=== PATIENT | female | born 1950 | race Caucasian/White ===

== ENCOUNTER 2017-03-23 15:55 | Inpatient (IN) | payer MEDICARE, BC ==
[~2017-03-23 15:55] MED LIST: ALBUTEROL17 GM; AMARYL2 MG PO; AMARYL4 M1 PO; AMBIEN10 MG PO; BIAXIN XL500 MG; CYMBALTA60 M1 PO; CYMBALTA60 MG PO; DOXYCYCLINE HY100 MG PO; FORTAMET500 MG/BOT; GLUCOPHAGE500 MG; GLUCOPHAGE850 M1 PO; GLUCOPHAGE850 MG PO; KEFLEX500 MG PO; LIPITOR40 M1 PO; LISINOPRIL-HCT1 EAC1 PO; LISINOPRIL-HCTZ PO; LUNESTA1 M1 PO; LUNESTA3 M1 PO; NEURONTIN800 M1 PO; NEURONTIN800 MG; NEURONTIN800 MG PO; PERCOCET 5-3251 EACH PO; PRAVACHOL40 MG PO; PROAIR HFA8.5 GM INH; PROMETHAZINE; PROMETHEGA12.5 MG/SU; TRILEPTAL300 MG PO; TRILEPTAL600 M2 PO; VIT B 12; XANAX0.5 M1 PO; ZANAFLEX4 M PO; ZANAFLEX4 M2 PO; ZOLOFT100 M1 PO; ZOLOFT100 MG; [UNRECOGNIZED DRUG - OTHER]; [UNRECOGNIZED DRUG - OTHER]
[2017-03-23] MEDS ORDERED: PRAVACHOL40 M1 PO (16:46)
[2017-03-23] MEDS ORDERED: NORCO 5-325 TA1 EACH PO (16:47)
[2017-03-23 16:54] LABS: BASO % 0.4 % (0-2); EOS % 4.8 % (0-7); EOSINOPHIL ABSOLUTE COUNT 0.4 tho/cmm (0.0-0.7); HCT-HEMATOCRIT 28.6 % (34.0-49.0); HGB-HEMOGLOBIN 9.5 gm/dl (12.0-15.5); IMMATURE GRANULOCYTES ABSOLUTE 0.04 tho/cmm (0-0.03); IMMATURE GRANULOCYTES PERCENT 0.4 % (0-0.3); LYMPH ABSOLUTE COUNT 1.1 tho/cmm (0.8-4.5); MCH (MEAN CORPUSCULAR HGB) 28.4 pg (28.0-32.0); MCHC MEAN CORPUSCULAR HGB CONC 33.2 % (32.0-36.0); MCV (MEAN CELL VOLUME) 85.6 fl (82.0-96.0); MEAN PLATELET VOLUME 9.2 cmc (9.4-12.4); MONO % 7.6 % (0-12); MONOCYTE ABSOLUTE COUNT 0.7 tho/cmm (0.0-1.2); NEUTROPHIL ABSOLUTE COUNT 6.8 tho/cmm (1.6-8.0); NEUTROPHIL-AUTOMATED 6.8 tho/cmm (1.6-8.0); NEUTROPHILS % 74.8 % (40-80); PLATELET COUNT 266 tho/cmm (150-450); RED BLOOD COUNT 3.34 mil/cmm (4.00-5.20); RED CELL DISTRIBUTION WIDTH 13.8 % (12.4-16.4); WHITE BLOOD COUNT 9.2 tho/cmm (4.0-10.0)
[2017-03-23] MEDS ORDERED: LASIX20 M1 PO (16:54)
[2017-03-23] MEDS ORDERED: CYANOCOBAL1000 MCG/3 IM (16:55)
[2017-03-23 17:10] LABS: ALB/GLOB RATIO 0.7 (0.8-2.0); ALBUMIN 3.3 g/dl (3.5-5.0); ALKALINE PHOSPHATASE 133 U/L (33-138); ALT/SGPT 19 U/L (12-78); ANION GAP 14 mmol/L (0-20); AST/SGOT 15 U/L (10-40); BILIRUBIN,TOTAL 0.3 mg/dl (0-1.5); BLOOD UREA NITROGEN 28 mg/dl (6-24); C-REACTIVE PROTEIN 17.9 mg/dl (0-0.9); CALCIUM 8.8 mg/dl (8.5-10.5); CARBON DIOXIDE-VENOUS 26 mmol/L (22-32); CHLORIDE 95 mmol/l (96-110); CREATININE 1.36 mg/dl (0.50-1.10); GLUCOSE 156 mg/dL (70-110); POTASSIUM 4.1 mmol/L (3.7-5.1); SODIUM 131 mmol/L (135-145); eGFR VALUE FOR BLACK 47 mL/Min
[2017-03-24 06:50] LABS: ANION GAP 13 mmol/L (0-20); BLOOD UREA NITROGEN 20 mg/dl (6-24); C-REACTIVE PROTEIN 14.2 mg/dl (0-0.9); CALCIUM 8.5 mg/dl (8.5-10.5); CARBON DIOXIDE-VENOUS 26 mmol/L (22-32); CHLORIDE 99 mmol/l (96-110); CREATININE 1.13 mg/dl (0.50-1.10); GLUCOSE 135 mg/dL (70-110); POTASSIUM 4.1 mmol/L (3.7-5.1); SODIUM 134 mmol/L (135-145); eGFR VALUE FOR BLACK 59 mL/Min
[2017-03-24 06:54] LABS: BASO % 0.6 % (0-2); EOS % 5.3 % (0-7); EOSINOPHIL ABSOLUTE COUNT 0.4 tho/cmm (0.0-0.7); HCT-HEMATOCRIT 26.6 % (34.0-49.0); HGB-HEMOGLOBIN 8.7 gm/dl (12.0-15.5); IMMATURE GRANULOCYTES ABSOLUTE 0.03 tho/cmm (0-0.03); IMMATURE GRANULOCYTES PERCENT 0.4 % (0-0.3); LYMPH % 16.8 % (20-45); LYMPH ABSOLUTE COUNT 1.2 tho/cmm (0.8-4.5); MCH (MEAN CORPUSCULAR HGB) 28.2 pg (28.0-32.0); MCHC MEAN CORPUSCULAR HGB CONC 32.7 % (32.0-36.0); MCV (MEAN CELL VOLUME) 86.1 fl (82.0-96.0); MEAN PLATELET VOLUME 8.9 cmc (9.4-12.4); MONO % 8.7 % (0-12); MONOCYTE ABSOLUTE COUNT 0.6 tho/cmm (0.0-1.2); NEUTROPHIL ABSOLUTE COUNT 4.7 tho/cmm (1.6-8.0); NEUTROPHIL-AUTOMATED 4.7 tho/cmm (1.6-8.0); NEUTROPHILS % 68.2 % (40-80); PLATELET COUNT 257 tho/cmm (150-450); RED BLOOD COUNT 3.09 mil/cmm (4.00-5.20); WHITE BLOOD COUNT 6.9 tho/cmm (4.0-10.0)
[2017-03-24 11:08] LABS: URINE BILIRUBIN NEGATIVE (NEG); URINE BLOOD NEGATIVE (NEG); URINE GLUCOSE (UA) NEGATIVE (NEG); URINE KETONE NEGATIVE (NEG); URINE LEUKOCYTE ESTERASE NEGATIVE (NEG); URINE NITRITE NEGATIVE (NEG); URINE PH 6.5 (5.0-8.0); URINE PROTEIN SMALL (NEG)
[2017-03-24 11:11] LABS: URINE APPEARANCE CLEAR; URINE COLOR YELLOW
[2017-03-24 11:18] LABS: URINE EPITHELIAL CELLS 0 /[HPF] (0-10); URINE RBC RARE /[HPF] (0-5); URINE WBC RARE /[HPF] (0-5)
[2017-03-25 05:57] LABS: BASO % 0.7 % (0-2); EOS % 5.8 % (0-7); EOSINOPHIL ABSOLUTE COUNT 0.3 tho/cmm (0.0-0.7); HCT-HEMATOCRIT 24.7 % (34.0-49.0); HGB-HEMOGLOBIN 8.1 gm/dl (12.0-15.5); IMMATURE GRANULOCYTES ABSOLUTE 0.04 tho/cmm (0-0.03); IMMATURE GRANULOCYTES PERCENT 0.7 % (0-0.3); LYMPH % 17.9 % (20-45); LYMPH ABSOLUTE COUNT 1.1 tho/cmm (0.8-4.5); MCH (MEAN CORPUSCULAR HGB) 28.1 pg (28.0-32.0); MCHC MEAN CORPUSCULAR HGB CONC 32.8 % (32.0-36.0); MCV (MEAN CELL VOLUME) 85.8 fl (82.0-96.0); MEAN PLATELET VOLUME 9.1 cmc (9.4-12.4); MONO % 8.4 % (0-12); MONOCYTE ABSOLUTE COUNT 0.5 tho/cmm (0.0-1.2); NEUTROPHIL ABSOLUTE COUNT 3.9 tho/cmm (1.6-8.0); NEUTROPHIL-AUTOMATED 3.9 tho/cmm (1.6-8.0); NEUTROPHILS % 66.5 % (40-80); PLATELET COUNT 237 tho/cmm (150-450); RED BLOOD COUNT 2.88 mil/cmm (4.00-5.20); RED CELL DISTRIBUTION WIDTH 13.6 % (12.4-16.4); WHITE BLOOD COUNT 5.9 tho/cmm (4.0-10.0)
[2017-03-25 06:17] LABS: ANION GAP 13 mmol/L (0-20); BLOOD UREA NITROGEN 12 mg/dl (6-24); CALCIUM 8.5 mg/dl (8.5-10.5); CARBON DIOXIDE-VENOUS 26 mmol/L (22-32); CHLORIDE 100 mmol/l (96-110); CREATININE 0.85 mg/dl (0.50-1.10); GLUCOSE 115 mg/dL (70-110); POTASSIUM 4.3 mmol/L (3.7-5.1); SODIUM 135 mmol/L (135-145); eGFR VALUE FOR BLACK 83 mL/Min
[2017-03-26] MEDS ORDERED: KEFLEX500 M4 PO (13:24)
[2017-03-26] MEDS ORDERED: LOVENOX40 MG/0.1 SC (13:27)
[2017-03-26] MEDS ORDERED: TYLENOL325 M2 PO (13:28)
== END 2017-03-26 14:58 | DRG 617 ==
LOC: EDMED 15:55 → EMR2 18:05 → 5EB 19:58 → ORE 03-24 18:49 → 5EB 03-24 20:43
PROVIDERS: Emergency Medicine; Family Medicine; ADMIT Hospitalist
PROC: 0Y6U0Z0 Detachment at Left 3rd Toe, Complete, Open Approach (ICD-10-PCS; principal; 2017-03-23)
PROC: 0J9R0ZZ Drainage of Left Foot Subcutaneous Tissue and Fascia, Open Approach (ICD-10-PCS; 2017-03-23)
PROC: 0Y6T0Z0 Detachment at Right 3rd Toe, Complete, Open Approach (ICD-10-PCS; 2017-03-23)
PROC: 0J9Q0ZZ Drainage of Right Foot Subcutaneous Tissue and Fascia, Open Approach (ICD-10-PCS; 2017-03-23)
DX: E11.622 Type 2 diabetes mellitus with other skin ulcer (principal); E87.1 Hypo-osmolality and hyponatremia; N17.9 Acute kidney failure, unspecified; Z68.42 Body mass index [BMI] 45.0-49.9, adult; L98.499 Non-pressure chronic ulcer of skin of other sites with unspecified severity; L03.032 Cellulitis of left toe; F32.9 Major depressive disorder, single episode, unspecified; I10 Essential (primary) hypertension; I73.9 Peripheral vascular disease, unspecified; F41.9 Anxiety disorder, unspecified; E11.42 Type 2 diabetes mellitus with diabetic polyneuropathy; E66.01 Morbid (severe) obesity due to excess calories
CPT/HCPCS: J0690; J1335; J1650; J1815; J2250; J3370; J7030